=== PATIENT | male | born 1970 | race Two or more races ===

== ENCOUNTER 2017-02-23 17:00 | Emergency (ER) | payer OTHER ==
[2017-02-23 17:13] VITALS: O2SAT 96
--- NOTE | 2017-02-23 17:26 | EDPHY ---
H & P Stated Complaint: rt shoulder weakness Time Seen by Provider: 02/23/17 17:15 HPI/ROS: CHIEF COMPLAINT: Right shoulder pain HISTORY OF PRESENT ILLNESS: Patient is a 46-year-old man who was at work drooling over his head when he had a sudden pain the top and back of his right shoulder. He continued to work but noticed that it was again hurting when he was pulling wires over his head. He has full range of motion in the shoulder. He denies neck pain. No paresthesias or numbness weakness. No chest pain or shortness of breath. There are certain movements over said that seem to exacerbate the pain. REVIEW OF SYSTEMS: Constitutional: denies: chills, fever, recent illness, recent injury EENTM: denies: blurred vision, double vision, nose congestion Respiratory: denies: cough, shortness of breath Cardiac: denies: chest pain, irregular heart rate, lightheadedness, palpitations Gastrointestinal/Abdominal: denies: abdominal pain, diarrhea, nausea, vomiting, blood streaked stools Genitourinary: denies: dysuria, frequency, hematuria, pain Musculoskeletal: See HPI Skin: denies: lesions, rash, jaundice, bruising Neurological: denies: headache, numbness, paresthesia, tingling, dizziness, weakness Hematologic/Lymphatic: denies: blood clots, easy bleeding, easy bruising Immunologic/allergic: denies: HIV/AIDS, transplant EXAM: GENERAL: Well-appearing, well-nourished and in no acute distress. HEAD: Atraumatic, normocephalic. EYES: Pupils equal round and reactive to light, extraocular movements intact, sclera anicteric, conjunctiva are normal. ENT: TMs normal, nares patent, oropharynx clear without exudates. Moist mucous membranes. NECK: Normal range of motion, supple without lymphadenopathy or JVD. LUNGS: Breath sounds clear to auscultation bilaterally and equal. No wheezes rales or rhonchi. HEART: Regular rate and rhythm without murmurs, rubs or gallops. ABDOMEN: Soft, nontender, normoactive bowel sounds. No guarding, no rebound. No masses appreciated. BACK: No CVA tenderness, no spinal tenderness, step-offs or deformities EXTREMITIES: Pain with moving arm back and forth overhead. No pain with arm below head. NEUROLOGICAL: Cranial nerves II through XII grossly intact. Normal speech, normal gait. 5/5 strength, normal movement in all extremities, normal sensation PSYCH: Normal mood, normal affect. SKIN: Warm, dry, normal turgor, no visible rashes or lesions. Source: Patient Exam Limitations: No limitations - Personal History Current Tetanus/Diphtheria Vaccine: No - Medical/Surgical History Hx Asthma: No Hx Chronic Respiratory Disease: No Hx Diabetes: No Hx Cardiac Disease: No Hx Renal Disease: No Hx Cirrhosis: No Hx Alcoholism: No Hx HIV/AIDS: No Hx Splenectomy or Spleen Trauma: No Other PMH: no PMH - Social History Smoking Status: Never smoked Alcohol Use: Sober Drug Use: None Constitutional: Initial Vital Signs Temperature (C) 36.9 C 02/23/17 17:10 Heart Rate 62 02/23/17 17:10 Respiratory Rate 16 02/23/17 17:10 Blood Pressure 135/95 H 02/23/17 17:10 O2 Sat (%) 96 02/23/17 17:10 O2 Delivery Mode Room Air Allergies/Adverse Reactions: No Known Allergies Allergy (Unverified 02/23/17 17:12) Home Medications: Medication Instructions Recorded NK [No Known Home Meds] 02/23/17 Medical Decision Making ED Course/Re-evaluation: Patient's history and exam were consistent with a minor rotator cuff injury. I will refer him to physical therapy and Orthopedics and have encouraged him to take anti-inflammatories. This is a worker's Comp injury and I have given him work restrictions. We discussed x-rays and I do not believe that they are indicated the patient agrees. He may need an MRI at some point if symptoms are not improving. Differential Diagnosis: Partial list of the Differential diagnosis considered include but were not limited to; shoulder pain, rotator cuff injury, impingement and although unlikely based on the history and physical exam, I also considered dislocation, fracture, neuropathy. I discussed these differential diagnoses and the plan with the patient as well as the usual and expected course. The patient understands that the diagnosis is provisional and that in medicine we are not always correct and that further workup is often warranted. Usual and customary warnings were given. All of the patient's questions were answered. The patient was instructed to return to the emergency department should the symptoms at all worsen or return, otherwise to followup with the physician as we discussed. Departure - Departure Disposition: Home, Routine, Self-Care Clinical Impression: Shoulder pain, right Qualifiers: Chronicity: acute Qualified Code(s): M25.511 - Pain in right shoulder Condition: Fair Instructions: Shoulder Pain (ED) Additional Instructions: Take ibuprofen 600 mg every 8 hours as discussed. Follow up with physical therapy as prescribed. Follow up with Orthopedics if her symptoms are not improving as discussed. Referrals: NONE *PRIMARY CARE P,. [Primary Care Provider] - As per Instructions Shaan Hagen MD [Medical Doctor] - As per Instructions Stand Alone Forms: Work Limited Duty
[2017-02-23 17:37] VITALS: BP 132/96; PULSE 64; RESP 18; TEMP 98.2
== END 2017-02-23 17:35 | disposition home or self-care (01) ==
LOC: CED 17:00
DX: M25.511 Pain in right shoulder (principal)